=== PATIENT | male | born 1950 | race Asian ===

== ENCOUNTER 2017-01-19 05:15 | Emergency (ER) | payer OTHER ==
[2017-01-19 05:24] VITALS: BMI 25.8
--- NOTE | 2017-01-19 05:31 | PDOC ---
History of Present Illness - General History Source: Patient Exam Limitations: No Limitations - History of Present Illness Initial Comments: 01/19/17 05:38 The patient is a 66 year old male with a significant PMH of HTN, non-insulin dependent diabetes, and daily smoking who presents to the emergency department with a headache beginning approximately 4 hours ago. The patient reports lying in his bed when he began to experience the headache, prompting his visit. The patient denies chest pain, shortness of breath,and dizziness. Denies fever, chills, nausea, vomit, diarrhea and constipation. Denies dysuria, frequency, urgency and hematuria. Allergies: NKA Past surgical history: None reported. Social history: No reported cigarette, alcohol, or drug use. PCP: Dr. Adiel De La Cruz <Pro Baer - Last Filed: 01/19/17 06:45> - General History Source: Patient <ChrisPhong silvestre - Last Filed: 01/19/17 19:18> - General Chief Complaint: Headache Stated Complaint: PAIN Time Seen by Provider: 01/19/17 05:29 Past History <Por Baer - Last Filed: 01/19/17 06:45> - Past Medical History Diabetes: Yes HTN: Yes - Suicide/Smoking/Psychosocial Hx Smoking History: Never smoked Have you smoked in the past 12 months: No Number of Cigarettes Smoked Daily: 7 Information on smoking cessation initiated: No Hx Alcohol Use: No Drug/Substance Use Hx: No Substance Use Type: None <Phong Andre - Last Filed: 01/19/17 19:18> - Past Medical History Allergies/Adverse Reactions: Allergies Allergy/AdvReac Type Severity Reaction Status Date / Time No Known Allergies Allergy Verified 01/19/17 05:22 Home Medications: Ambulatory Orders Atenolol [Tenormin -] 50 mg PO DAILY 05/16/13 Review of Systems - Review of Systems Able to Perform ROS?: Yes Comments:: 01/19/17 05:38 CONSTITUTIONAL: Absent: fever, chills, diaphoresis, generalized weakness, malaise, loss of appetite HEENT: Absent: rhinorrhea, nasal congestion, throat pain, throat swelling, difficulty swallowing, mouth swelling, ear pain, eye pain, visual Changes CARDIOVASCULAR: Absent: chest pain, syncope, palpitations, irregular heart rate, lightheadedness , peripheral edema RESPIRATORY: Absent: cough, shortness of breath, dyspnea with exertion, orthopnea, wheezing, stridor, hemoptysis GASTROINTESTINAL: Absent: abdominal pain, abdominal distension, nausea, vomiting, diarrhea, constipation, melena, hematochezia GENITOURINARY: Absent: dysuria, frequency, urgency, hesitancy, hematuria, flank pain, genital pain MUSCULOSKELETAL: Absent: myalgia, arthralgia, joint swelling SKIN: Absent: rash, itching, pallor HEMATOLOGIC/IMMUNOLOGIC: Absent: easy bleeding, easy bruising, lymphadenopathy, frequent infections ENDOCRINE: Absent: unexplained weight gain, unexplained weight loss, heat intolerance, cold intolerance NEUROLOGIC: (+) Headache. Absent: focal weakness or paresthesias, dizziness, unsteady gait, seizure, mental status changes, bladder or bowel incontinence PSYCHIATRIC: Absent: anxiety, depression, suicidal or homicidal ideation, hallucinations. <Pro Baer - Last Filed: 01/19/17 06:45> *Physical Exam - Vital Signs Last Vital Signs Temp Pulse Resp BP Pulse Ox 102 H 14 218/118 100 01/19/17 05:22 01/19/17 05:22 01/19/17 05:22 01/19/17 05:22 - Physical Exam Comments: 01/19/17 05:38 GENERAL: Well developed, well nourished. Awake and alert. No acute distress. HEENT: Normocephalic, atraumatic. PERRLA, EOMI. No conjunctival pallor. Sclera are non- icteric. Moist mucous membranes. Oropharynx is clear. NECK: Supple. Full ROM. No JVD. Carotid pulses 2+ and symmetric, without bruits. No thyromegaly. No lymphadenopathy. CARDIOVASCULAR: Regular rate and rhythm. No murmurs, rubs, or gallops. Distal pulses are 2+ and symmetric. PULMONARY: No evidence of respiratory distress. Lungs clear to auscultation bilaterally. No wheezing, rales or rhonchi. ABDOMINAL: Soft. Non-tender. Non-distended. No rebound or guarding. No organomegaly. Normoactive bowel sounds. MUSCULOSKELETAL Normal range of motion at all joints. No bony deformities or tenderness. No CVA tenderness. EXTREMITIES: No cyanosis. No clubbing. No edema. No calf tenderness. SKIN: Warm and dry. Normal capillary refill. No rashes. No jaundice. NEUROLOGICAL: Alert, awake, appropriate. Cranial nerves 2-12 intact. No deficits to light touch and temperature in face, upper extremities and lower extremities. No motor deficits in the in face, upper extremities and lower extremities. Normoreflexic in the upper and lower extremities. Normal speech. Toes are downgoing bilaterally. Gait is normal without ataxia. PSYCHIATRIC: Cooperative. Good eye contact. Appropriate mood and affect. <Pro Baer - Last Filed: 01/19/17 06:45> - Vital Signs Last Vital Signs Temp Pulse Resp BP Pulse Ox 102 H 14 218/118 100 01/19/17 05:22 01/19/17 05:22 01/19/17 05:22 01/19/17 05:22 <Phong Andre - Last Filed: 01/19/17 19:18> Heart Score/ECG Review #1 01/19/17 05:46 Vent. rate 102 bpm Sinus tachycardia Possible left atrial enlargement Possible inferior infarct, age undetermined Cannot rule out anterior infarct, age undetermined ST & T wave abnormality, consider lateral ischemia Abnormal ECG <Pro Baer - Last Filed: 01/19/17 06:45> ED Treatment Course - LABORATORY CBC & Chemistry Diagram: 01/19/17 05:33 01/19/17 05:33 <Pro Baer - Last Filed: 01/19/17 06:45> - LABORATORY CBC & Chemistry Diagram: 01/19/17 05:33 01/19/17 05:33 <Phong Andre - Last Filed: 01/19/17 19:18> Medical Decision Making - Medical Decision Making 01/19/17 19:17 Dr. Andre: The scribe's documentation has been prepared under my direction and personally reviewed by me in its entirery. I confirm that the note above accurately reflects all work, treatment, procedures, and medical decision making performed by me. <Phong Andre - Last Filed: 01/19/17 19:18> *DC/Admit/Observation/Transfer - Attestations Scribe Attestion: 01/19/17 05:38 Documentation prepared by Pro Baer, acting as biomedical electronics technician for Phong Andre DO. <Pro Baer - Last Filed: 01/19/17 06:45> - Discharge Dispostion Admit: No <Phong Andre - Last Filed: 01/19/17 19:18> Diagnosis at time of Disposition: Hypertension - Discharge Dispostion Disposition: AGAINST MEDICAL ADVICE Condition at time of disposition: Guarded - Referrals Referrals: Adiel De La Cruz MD [Primary Care Provider] - - Patient Instructions Printed Discharge Instructions: DI for Tachycardia Additional Instructions: You have signed out of the hospital AGAINST MEDICAL ADVICE. Your heart rate in the emergency department is dangerously high and I am concerned that this could represent a problem with your heart or lungs. By leaving AGAINST MEDICAL ADVICE you are at risk for worsening fast heart rate, chest pain, heart attack, shortness of breath, weakness, permanent disability, or even . Please return to the emergency department as soon as possible to complete your evaluation. Also, please follow up with Dr. Adiel De La Cruz as soon as possible.
[2017-01-19] MEDS ORDERED: hydrALAZINE HCL 20 MG/ML VIAL IVPUSH ONE ×2 (05:32→06:09)
[2017-01-19] MEDS ORDERED: hydrALAZINE HCL 20 MG/ML VIAL ONE ×2 (05:38→06:16)
[2017-01-19 05:43] LABS: BASOPHIL 0.3 % (0-2.0); EOSINOPHIL 1.8 % (0-4.5); MCH 31.4 pg (25.7-33.7); MCHC 34.5 g/dl (32.0-35.9); MEAN PLT VOLUME 9.5 fl (7.5-11.1); NEUTROPHILS 83.5 % (42.8-82.8); PLATELET COUNT 164 K/MM3 (134-434); WHITE BLOOD COUNT 9.1 K/mm3 (4.0-10.0)
[2017-01-19 05:55] LABS: INR 1.15 (0.82-1.09); PROTHROMBIN TIME (PATIENT) 12.7 SEC (9.98-11.88)
[2017-01-19 06:08] LABS: ALBUMIN 2.9 g/dl (3.4-5.0); ANION GAP 6 (8-16); BILIRUBIN,TOTAL 0.4 mg/dL (0.2-1.0); CALCIUM 8.1 mg/dL (8.5-10.1); CO2 29 mmol/L (21-32); CREATININE 1.3 mg/dL (0.7-1.3); GLUCOSE,RANDOM 242 mg/dL (74-106); MAGNESIUM 1.9 mg/dL (1.8-2.4); SGOT/AST 18 U/L (15-37); SGPT/ALT 24 U/L (12-78); TOT PROT 6.2 g/dl (6.4-8.2)
[2017-01-19 06:10] LABS: ALK PHOS 69 U/L (45-117); CPK 123 IU/L (39-308); TROPONIN I 0.04 ng/ml (0.00-0.05)
[2017-01-19] MEDS ORDERED: LOSARTAN 50MG/HCTZ 12.5MG 1 TAB (FP) PO ONE (06:52)
[2017-01-19] MEDS ORDERED: LOSARTAN POTASSIUM 25 MG TABLET ONE (06:54)
[2017-01-19] MEDS ORDERED: ACETAMINOPHEN 325 MG TABLET (FP) ONE (06:58)
[2017-01-19] MEDS ORDERED: ACETAMINOPHEN 500 MG TABLET (FP) PO ONE (06:58)
--- NOTE | 2017-01-19 08:45 | PDOC ---
*Physical Exam - Vital Signs Last Vital Signs Temp Pulse Resp BP Pulse Ox 100 H 18 171/94 100 01/19/17 06:57 01/19/17 06:57 01/19/17 06:57 01/19/17 06:57 ED Treatment Course - LABORATORY CBC & Chemistry Diagram: 01/19/17 05:33 01/19/17 05:33 - ADDITIONAL ORDERS Additional order review: Laboratory Results 01/19/17 01/19/17 05:33 05:33 PT with INR 12.70 H INR 1.15 H Sodium 137 Potassium 4.4 Chloride 102 Carbon Dioxide 29 Anion Gap 6 L BUN 23 H D Creatinine 1.3 D Creat Clearance w eGFR 55.23 Random Glucose 242 H D Calcium 8.1 L Magnesium 1.9 Total Bilirubin 0.4 AST 18 ALT 24 Alkaline Phosphatase 69 Creatine Kinase 123 Troponin I 0.04 D Total Protein 6.2 L Albumin 2.9 L 01/19/17 05:33 RBC 4.14 MCV 91.0 MCHC 34.5 RDW 13.0 MPV 9.5 Neutrophils % 83.5 H D Lymphocytes % 11.3 D Monocytes % 3.1 L Eosinophils % 1.8 Basophils % 0.3 - Medications Given in the ED: ED Medications Discontinued Medications Generic Name Dose Route Start Last Admin Trade Name Freq PRN Reason Stop Dose Admin Acetaminophen 975 mg 01/19/17 06:58 01/19/17 07:01 Tylenol - PO 01/19/17 06:59 975 mg ONCE ONE Administration HCTZ/Losartan Potassium 1 tab 01/19/17 06:52 01/19/17 06:56 Hyzaar - PO 01/19/17 06:53 1 tab ONCE ONE Administration Hydralazine HCl 10 mg 01/19/17 05:32 01/19/17 05:42 Apresoline Injection - IVPUSH 01/19/17 05:33 10 mg ONCE ONE Administration Hydralazine HCl 10 mg 01/19/17 06:09 01/19/17 06:12 Apresoline Injection - IVPUSH 01/19/17 06:10 10 mg ONCE ONE Administration Medical Decision Making - Medical Decision Making 01/19/17 08:32 Patient was signed out to me by Dr. Escobedo pending read on a CT head. Briefly , patient presented to the emergency department with the headache and elevated blood pressure. CT head is negative. The patient was given hydralazine and his home dose of losartan. On my reevaluation this morning, the patient reports the headache has improved. His blood pressure currently is 155/89. Patient however is tachycardic to 120 while at rest. Tachycardia may be secondary to rebound from the hydralazine. I have placed a call to Dr. De La Cruz to discuss dispo and in the mean time will send a TSH. Pt denies any symptoms currently, denies SOB, headache, CP, palpitations. He reports that his just had a stroke and he has been anxious recently as well. Will continue to monitor. 01/19/17 09:49 Patient's heart rate continues to be persistently tachycardic to 110s to 120s. Repeat EKG with sinus tachycardia, rate of 120 with T-wave inversions in 1, aVL , V5 and V6. T-wave inversions are unchanged compared to EKG from a few hours ago but rate is faster. While this tachycardia is likely rebound after 20mg hydralzine, I would like to keep the patient to check a TSH, another troponin, and possibly a CTA chest to evaluate for PE. I spoke with the patient's primary doctor, Dr. Adiel De La Cruz who recommends that we call his mechanical engineering intern Dr. Teresa and admit him to obs until his tachycardia resolves. When I discussed this conversation with the patient and his son, the patient expresses understanding of my concern about his heart rate but does not wish to stay because his had a stroke and he needs to visit her in rehabilitation. He reports that if he does not show up this morning she will know something is wrong and then she will fall in rehabilitation. The patient is tearful while having this conversation and upset about his being in rehabilitation for her stroke. The patient is clinically sober, free from distracting injury, appears to have intact insight and judgment and reason and in my opinion has the capacity to make decisions. The patient presents with HTN, headache, and tachycardia I have explained that I am concerned that this may represent a side effect from medication, a pulmonary embolism, thyroid disease, or even a heart attack; they have verbalized an understanding of my concerns. I have told the patient that while their CTH and labs were normal, they could still have a heart or lung problem. I have discussed the need for observation and a cardiology consult to get more information about potential causes of the patients tachycardia. I have told the patient that if they leave and have continued fast heart rate, they could get much worse, could become critically ill, and could possibly become disabled or . I have offered to give the patient more pain medication. I have asked them to stay in the hospital for monitoring. I have discussed these concerns with the patients son who is at the bedside and he is unable to convince them to stay for further evaluation. The patient is not willing to be admitted for observation. He is unwilling to stay for monitoring. He is refusing any further care and is leaving against medical advice. I am unable to convince the patient to stay, I have asked them to return as soon as possible to complete their evaluation. He has signed the AMA form. I have spoken with coverage for their primary care doctor in regards to their tachycardia and HTN. I have answered all their questions. *DC/Admit/Observation/Transfer Diagnosis at time of Disposition: Hypertension - Discharge Dispostion Disposition: AGAINST MEDICAL ADVICE Condition at time of disposition: Guarded Admit: No - Referrals Referrals: Adiel De La Cruz MD [Primary Care Provider] - - Patient Instructions Printed Discharge Instructions: DI for Tachycardia Additional Instructions: You have signed out of the hospital AGAINST MEDICAL ADVICE. Your heart rate in the emergency department is dangerously high and I am concerned that this could represent a problem with your heart or lungs. By leaving AGAINST MEDICAL ADVICE you are at risk for worsening fast heart rate, chest pain, heart attack, shortness of breath, weakness, permanent disability, or even . Please return to the emergency department as soon as possible to complete your evaluation. Also, please follow up with Dr. Adiel De La Cruz as soon as possible. - Attestations Physician Attestion: 01/19/17 10:00 I, Dr. Martha Nolasco MD, attest that this document has been prepared under my direction and personally reviewed by me in its entirety. I further attest, that it accurately reflects all work, treatment, procedures and medical decision -making performed by me.
[2017-01-19 09:58] LABS: THYROID STIMULATING HORMONE 1.11 uIU/ml (0.358-3.74)
[2017-01-19 10:17] VITALS: BP 155/88; PULSE 118; TEMP 98.3
--- NOTE | 2017-01-19 11:50 | EKG ---
Test Reason : Blood Pressure : / mmHG Vent. Rate : 102 BPM Atrial Rate : 102 BPM P-R Int : 150 ms QRS Dur : 080 ms QT Int : 374 ms P-R-T Axes : 061 023 149 degrees QTc Int : 487 ms SINUS TACHYCARDIA POSSIBLE LEFT ATRIAL ENLARGEMENT POSSIBLE INFERIOR INFARCT (CITED ON OR BEFORE 16-MAY-2013) CANNOT RULE OUT ANTERIOR INFARCT , AGE UNDETERMINED ABNORMAL ECG WHEN COMPARED WITH ECG OF 16-MAY-2013 20:56, ST NOW DEPRESSED IN LATERAL LEADS T WAVE INVERSION NOW EVIDENT IN LATERAL LEADS QT HAS LENGTHENED Confirmed by JESUS AHN, FAHAD ([id number] on 01/19/2017 11:50:07 AM Referred By: Confirmed By:FAHAD LEE MD
--- NOTE | 2017-01-19 13:04 | EKG ---
Test Reason : Blood Pressure : / mmHG Vent. Rate : 120 BPM Atrial Rate : 120 BPM P-R Int : 138 ms QRS Dur : 076 ms QT Int : 350 ms P-R-T Axes : 066 040 117 degrees QTc Int : 494 ms SINUS TACHYCARDIA POSSIBLE LEFT ATRIAL ENLARGEMENT POSSIBLE INFERIOR INFARCT (CITED ON OR BEFORE 16-MAY-2013) CANNOT RULE OUT ANTERIOR INFARCT (CITED ON OR BEFORE 19-JAN-2017) T WAVE ABNORMALITY, CONSIDER LATERAL ISCHEMIA ABNORMAL ECG WHEN COMPARED WITH ECG OF 19-JAN-2017 05:28, SERIAL CHANGES OF ANTERIOR INFARCT PRESENT Confirmed by FAHAD LEE MD ([id number]) on 01/19/2017 1:04:54 PM Referred By: Confirmed By:FAHAD LEE MD
== END 2017-01-19 10:36 | disposition left against medical advice (07) ==
LOC: JER 05:15
PROC: 3E033GC Introduction of Other Therapeutic Substance into Peripheral Vein, Percutaneous Approach (ICD-10-PCS; principal; 2017-01-19)
DX: I10 Essential (primary) hypertension (principal); E11.9 Type 2 diabetes mellitus without complications
CPT/HCPCS: 36415; 70450-TC; 71010-TC; 80053; 83735; 84443; 84484; 85025; 85610; 93005; 93010; 96374; 96376; 99284-25